=== PATIENT | female | born 1965 | race Caucasian/White ===

== ENCOUNTER 2018-06-02 14:11 | Outpatient (CLI) | payer BC | END 2018-06-02 14:12 | disposition home or self-care (01) | LOC: BICRAD 14:11 | PROVIDERS: ATTEND Physician Assistant Medical | DX: R06.2 Wheezing (principal) | CPT/HCPCS: 71046 ==

== ENCOUNTER 2018-08-07 12:43 | Outpatient (CLI) | payer BC ==
--- NOTE | 2018-08-07 18:12 | BD ---
BONE DENSITOMETRY USING DEXA: Date: 08/07/18 HISTORY: Postmenopausal screening for osteoporosis. FINDINGS: Lumbar Spine: BMD (g/cm2) L1 0.908 T-Score: -0.7 Z-Score: 0.0 L2 0.937 T-Score: -0.8 Z-Score: 0.0 L3 1.022 T-Score: -0.7 Z-Score: 0.3 L4 1.166 T-Score: 1.0 Z-Score: 1.9 L1-L4 1.020 T-Score: -0.2 Z-Score: 0.6 Left Forearm: UD 0.396 T-Score: -0.8 Z-Score: -0.2 Mid 0.633 T-Score: 0.4 Z-Score: 1.3 1/3 0.788 T-Score: 1.6 Z-Score: 2.4 IMPRESSION: Normal bone mineral density. No evidence of osteopenia/osteoporosis. POS: [facility]
== END 2018-08-07 12:44 | disposition home or self-care (01) ==
LOC: BICMAMMO 12:43
PROVIDERS: ATTEND Physician Assistant Medical
DX: Z00.00 Encounter for general adult medical examination without abnormal findings (principal); Z13.820 Encounter for screening for osteoporosis
CPT/HCPCS: 77063; 77067; 77080

== ENCOUNTER 2019-01-16 10:19 | Outpatient (CLI) | payer BC ==
--- NOTE | 2019-01-16 11:00 | CT ---
CT Chest W Con: 01/16/2019 12:00 AM CLINICAL INDICATION: Follow-up lung nodule. COMPARISON: CT of the thorax from prior radiology associates dated October 03, 2014. Procedure: No oral contrast was administered. 70 ml of Isovue-[id number] was injected intravenously. FINDINGS: Lung and Large Airways: The previously seen 7 mm pulmonary nodule within the posterior segment of the right upper lobe has decreased in size on image 28 of series 3, now measuring 3 mm. There are persistent areas of scattered tree-in-bud nodularity within the posterior segment of the right upper lobe with associated mild bronchiectasis. There is a new region of tree-in-bud nodularity seen within the posterior segment of the right upper lobe on image 38 of series 3. There is a new focus of tree-in-bud nodularity seen within the lateral segment of the right middle lobe. 7 mm pulmonary nodule within the lateral segment right middle lobe persists. Previously seen 5 mm pulmonary nodule i s no longer present. There are new foci of tree-in-bud nodularity seen within the anterolateral and posterior lateral segments of the right lower lobe which were not present on the prior exam. There is a new 3 mm pulmonary nodule within the left lower lobe on image 74 of series 3. Small sub-4mm, subpleural pulmonary nodule within the anterior left lower lobe on image 80 of series 3 is stable. Pleura: within normal limits. Vessels: within normal limits. Atherosclerotic changes in the aorta there are mild calcifications inv olving the coronary arteries.. Heart: normal size. No pericardial effusion. Mediastinum and Ginger: within normal limits. Chest Wall and Lower Neck: within normal limits. Upper Abdomen: There is A small hiatal hernia. The remaining upper abdomen appears within normal limi ts. Bones: No acute fracture or subluxation demonstrated. There is scattered degenerative and osteoarthri tic change present. IMPRESSION: Waxing and waning pulmonary nodules within the right lung is suspicious for bronchiolitis of infectio us or inflammatory etiology. Recommend continued CT follow-up in 6-8 weeks to document stability. Stable small hiatal hernia
[2019-01-16] MEDS ORDERED: Iopamidol 370 76% 100 ML VIAL ONE (14:25)
== END 2019-01-16 10:20 | disposition home or self-care (01) ==
LOC: BICCT 10:19
PROVIDERS: ATTEND Internal Medicine
DX: R91.8 Other nonspecific abnormal finding of lung field (principal); K44.9 Diaphragmatic hernia without obstruction or gangrene
CPT/HCPCS: 71260; Q9967